=== PATIENT | female | born 1975 | race Caucasian/White ===

== ENCOUNTER 2017-01-27 12:47 | Emergency (ER) | payer SELFPAY ==
[2017-01-27 13:18] LABS: BASOPHILS 0.2 % (0-2); EOSINOPHILS 2.2 % (0-7); HEMATOCRIT 37.8 % (36.0-48.0); HEMOGLOBIN 12.4 g/dL (12-16); IMMATURE GRANULOCYTES 0.4 % (0-5); MCH 28.4 pg (26.0-34.0); MCHC 32.8 g/dL (31.0-37.0); MCV 86.7 fL (80.0-100.0); MEAN PLATELET VOLUME 8.9 fL (7.4-10.4); MONOCYTES 7.5 % (2-11); NEUTROPHILS 72.7 % (40-80); PLATELET COUNT 372 10x3/uL (130-400); RBC 4.36 10x6/uL (4.00-5.40); RDW 13.9 % (11.5-14.5); WBC 16.3 10x3/uL (4.8-10.8)
[2017-01-27 13:30] LABS: ALBUMIN 3.6 g/dL (3.4-5.0); ANION GAP 13.3 mmol/L (8-16); BILIRUBIN - TOTAL 0.49 mg/dL (0.2-1.3); CALCIUM 8.7 mg/dL (8.5-10.1); CARBON DIOXIDE 25.4 mmol/L (21.0-32.0); CREATININE - SERUM 0.9 mg/dL (0.6-1.3); POTASSIUM - SERUM 3.7 mmol/L (3.5-5.1); PROTEIN - SERUM 7.4 g/dL (6.4-8.2)
[2017-01-27 13:33] LABS: AMYLASE - SERUM 65 U/L (25-115); LIPASE 128 U/L (73-393)
[2017-01-27 13:35] LABS: HCG SERUM NEGATIVE (NEGATIVE)
[2017-01-27 13:57] LABS: APPEARANCE CLOUDY (CLEAR); BACTERIA MANY /hpf (NONE SEEN); BILIRUBIN NEGATIVE (NEGATIVE); COLOR YELLOW (YELLOW); GLUCOSE NEGATIVE (NEGATIVE); KETONE NEGATIVE (NEGATIVE); MUCUS <1+ /lpf (NONE SEEN); NITRITE POSITIVE (NEGATIVE); PROTEIN NEGATIVE (NEGATIVE); RED CELLS - URINE 0-5 /hpf (0-5); UROBILINOGEN NORMAL (NORMAL); WHITE CELLS - URINE 25-50 /hpf (0-5)
[2017-01-27 14:34] LABS: UDS - AMPHET POSITIVE QUAL (NEGATIVE); UDS - BARB NEGATIVE QUAL (NEGATIVE); UDS - BENZO NEGATIVE QUAL (NEGATIVE); UDS - COCAINE NEGATIVE QUAL (NEGATIVE); UDS - OPIATE NEGATIVE QUAL (NEGATIVE); UDS - PCP NEGATIVE QUAL (NEGATIVE); UDS - THC NEGATIVE QUAL (NEGATIVE)
[2017-01-28 21:08] LABS: CHLAMYDIA TRACHOMATIS, NAA Negative (Negative)
== END 2017-01-27 15:41 | disposition home or self-care (01) ==
LOC: D.ER 12:47
PROVIDERS: Family Medicine
DX: N83.209 Unspecified ovarian cyst, unspecified side (principal); N39.0 Urinary tract infection, site not specified; F17.200 Nicotine dependence, unspecified, uncomplicated; I10 Essential (primary) hypertension; E03.9 Hypothyroidism, unspecified